=== PATIENT | female | born 1970 | race Caucasian/White ===

== ENCOUNTER 2016-12-14 17:19 | Inpatient (IN) | payer OTHER ==
[~2016-12-14] VITALS: Ht 160 cm; Wt 45.5 kg
[2016-12-14 18:13] LABS: BASO # 0.1 (0.0-0.2); BASO % 0.5 % (0.0-2.0); EOS # 0.1 (0.0-0.7); EOS % 0.4 % (0-4.0); GRAN # 11.9 (1.4-6.5); GRAN % 80.6 % (42.2-75.2); HEMATOCRIT 33.5 % (37.0-47.0); HEMOGLOBIN 11.3 g/dl (12.5-16.0); LYMPH # 1.8 (1.2-3.4); MEAN CELL VOLUME 84 fl (80.0-100.0); MEAN CORPUSCULAR HEMOGLOBIN 28 pg (27.0-31.0); MEAN CORPUSCULAR HGB CONC 34 g/dl (33.0-37.0); MEAN PLATELET VOLUME 9.1 fl (7.4-10.4); MONO # 0.9 (0.1-0.6); PLATELET COUNT 380 K/mm3 (130-400); RED BLOOD COUNT 3.99 M/mm3 (4.10-5.30); REDCELL DISTRIBUTION WIDTH-CV 12.9 % (11.5-14.5); WHITE BLOOD COUNT 14.8 K/mm3 (4.8-10.8)
[2016-12-14 18:30] LABS: ADJUSTED CALCIUM 9.3 mg/dL (8.4-10.2); ALBUMIN 3.8 gm/dL (3.5-5.0); BILIRUBIN,TOTAL 0.7 mg/dL (0.0-1.0); CALCIUM 9.1 mg/dL (8.4-10.2); CREATININE, serum 0.65 mg/dL (0.52-1.25); TOTAL PROTEIN 7.8 gm/dL (6.4-8.2)
[2016-12-14 18:38] LABS: ERYTHROCYTE SEDIMENTATION RATE 129 mm/hr (0-20)
[2016-12-14 18:59] LABS: PH 5 (5-8); SQUAMOUS EPITHELIAL 0-2 /hpf; URINE APPEARANCE Hazy; URINE BACTERIA None Seen /hpf; URINE BILIRUBIN Negative (NEGATIVE); URINE BLOOD 1+ (NEGATIVE); URINE COLOR Yellow; URINE GLUCOSE 3+ (NEGATIVE); URINE KETONE 1+ (NEGATIVE); URINE UROBILINOGEN Negative (NEGATIVE); URINE WBC 20-50 /hpf
[2016-12-14 19:10] LABS: C-REACTIVE PROTEIN 35.3 mg/dL (0.0-0.9)
[2016-12-14 19:41] VITALS: BP 161/99; PULSE 113
[2016-12-14] MEDS ORDERED: Lantus SQ (20:36)
[2016-12-14 21:05] VITALS: BP 98/55; PULSE 92; TEMP 99.6
[2016-12-14] MEDS ORDERED: LANTUS100 U/ML SQ (23:11)
[2016-12-14 23:59] VITALS: BP 105/57; PULSE 83; TEMP 98.3
[2016-12-15] MEDS ORDERED: CANA100T PO (03:06)
[2016-12-15 03:57] VITALS: BP 159/77; PULSE 82; TEMP 97.6
[2016-12-15 07:48] VITALS: BP 148/83; PULSE 84; TEMP 98
[2016-12-15 11:55] VITALS: BP 151/76; PULSE 84; TEMP 98.5
[2016-12-15] MEDS ORDERED: CANA300T PO (12:47)
[2016-12-15] MEDS ORDERED: GLUCOPHAGE500 MG/TAB PO (12:48)
[2016-12-15 14:52] LABS: BASO % 0.2 % (0.0-2.0); GRAN # 13.6 (1.4-6.5); LYMPH # 0.9 (1.2-3.4); MEAN CELL VOLUME 86 fl (80.0-100.0); MEAN CORPUSCULAR HGB CONC 33 g/dl (33.0-37.0); MEAN PLATELET VOLUME 9.2 fl (7.4-10.4); MONO # 0.1 (0.1-0.6); MONO % 0.9 % (1.7-9.3); PLATELET COUNT 441 K/mm3 (130-400); RED BLOOD COUNT 3.98 M/mm3 (4.10-5.30); REDCELL DISTRIBUTION WIDTH-CV 13.4 % (11.5-14.5); WHITE BLOOD COUNT 14.8 K/mm3 (4.8-10.8)
[2016-12-15 14:56] LABS: CALCIUM 8.4 mg/dL (8.4-10.2); CREATININE, serum 0.56 mg/dL (0.52-1.25)
[2016-12-15 15:03] LABS: HEMATOCRIT 34.1 % (37.0-47.0); HEMOGLOBIN 11.2 g/dl (12.5-16.0); MEAN CORPUSCULAR HEMOGLOBIN 28 pg (27.0-31.0)
[2016-12-15 16:11] VITALS: BP 106/62; PULSE 101; TEMP 98.4
[2016-12-15 19:31] VITALS: BP 122/74; PULSE 87; TEMP 98.7
[2016-12-16] VITALS: BP 141/93; PULSE 87; TEMP 98.5
[2016-12-16 03:37] VITALS: BP 141/66; PULSE 84; TEMP 98.1
[2016-12-16 07:41] LABS: MEAN CELL VOLUME 86 fl (80.0-100.0); MEAN CORPUSCULAR HGB CONC 33 g/dl (33.0-37.0); MEAN PLATELET VOLUME 9.3 fl (7.4-10.4); PLATELET COUNT 470 K/mm3 (130-400); RED BLOOD COUNT 3.59 M/mm3 (4.10-5.30); REDCELL DISTRIBUTION WIDTH-CV 13.6 % (11.5-14.5); WHITE BLOOD COUNT 12.9 K/mm3 (4.8-10.8)
[2016-12-16 07:47] LABS: HEMATOCRIT 30.7 % (37.0-47.0); MEAN CORPUSCULAR HEMOGLOBIN 28 pg (27.0-31.0)
[2016-12-16 09:00] VITALS: BP 113/75; PULSE 88; TEMP 98
[2016-12-16] MEDS ORDERED: OMNICEF 300MG300 MG PO (12:27)
== END 2016-12-16 14:39 | disposition home or self-care (01) | DRG 872 ==
LOC: COL.ER 17:19 → MEDICAL 19:59
PROVIDERS: Emergency Medicine; Internal Medicine
DX: A41.51 Sepsis due to Escherichia coli [E. coli] (principal); N39.0 Urinary tract infection, site not specified; E11.9 Type 2 diabetes mellitus without complications; Z79.4 Long term (current) use of insulin; D63.8 Anemia in other chronic diseases classified elsewhere; E87.8 Other disorders of electrolyte and fluid balance, not elsewhere classified
CPT/HCPCS: 99223-AI; 99239; J0696; J1815; J2060; J2405; J7030; J7512